=== PATIENT | male | born 1995 | race Caucasian/White ===

== ENCOUNTER 2016-12-14 10:05 | Emergency (ER) | payer OTHER ==
--- NOTE | ~2016-12-14 | ER ---
PATIENT'S NAME: TEJAS [facility] AGE: 21 Y [address] ROOM: [place] [id number] LOCATION: [facility] ADMIT DATE: 12/14/2016 ER/Outpatient Report DISCHARGE DATE: 12/14/2016 FAMILY PHYSICIAN: PHYSICIAN, NO ATTENDING PHYSICIAN: Jacy Green Time of Arrival: 1005 hours. Time of Evaluation: 1011 hours. IDENTIFICATION: A 21-year-old male. CHIEF COMPLAINT: Left abdominal pain. HISTORY OF PRESENT ILLNESS: The complains of left-sided abdominal pain in the mid abdomen that radiates downward for the last 3-4 days. He describes it as a squeezing type sensation associated with nausea. Bowel movements have been normal. Last bowel movement was 30 minutes ago, they are not diarrhea, but maybe a little looser than normal. There is not how many per day. He states that is normal for him. No significant change. MEDICAL PROBLEMS: 1. 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 2. Pulmonary atresia. 3. He had a previous injury with a pelvic fracture. 4. Liver and spleen injury. ALLERGIES: NO KNOWN DRUG ALLERGIES. CURRENT MEDICATIONS: Effexor 150 mg q.a.m. which was just started in rehab. He was in a 30-day inpatient treatment program in [place] which he just got out of. REVIEW OF SYSTEMS: All systems reviewed negative other than what is noted in the HPI. SOCIAL HISTORY: The patient lives here in [place]. He has a significant other. Tobacco use, 8 to 10 cigarettes per day for 11 years. Alcohol and drug use with opiate. Alcohol and cocaine abuse, last use was 3 to 3-1/2 months ago. FAMILY HISTORY: PATIENT'S NAME: TEJAS [facility] AGE: 21 Y [address] ROOM: [place] [id number] LOCATION: [facility] ADMIT DATE: 12/14/2016 ER/Outpatient Report DISCHARGE DATE: 12/14/2016 FAMILY PHYSICIAN: PHYSICIAN, NO ATTENDING PHYSICIAN: Jacy Green No pertinent family history. No history of inflammatory bowel disease or colon problems. REVIEW OF SYSTEMS: No dysuria, no increased frequency of urination. PHYSICAL EXAMINATION: VITAL SIGNS: Height 6 feet 0 inches and weight 85 kg. Pulse 80, respiratory rate 16, temp 97.5, sats 95% on room air. GENERAL: Pleasant male in no acute distress. HEENT: Head: Normocephalic, atraumatic. Ears: TMs translucent in both ears. Nose: Mucosa pink, no lesions. Mouth: No lesions. Pharynx benign. NECK: Supple. No lymphadenopathy. LUNGS: Clear to auscultation. HEART: Regular rate and rhythm. ABDOMEN: Soft, nondistended. Tender to palpation in the left lower abdomen. No rebound or guarding. SKIN: [place], warm, and dry. No lesions or rashes noted. NEURO: No focal deficit. LABORATORY DATA: Hemoglobin 16.6, hematocrit 48.2, platelets 154, white count 6.2. INR 1.1. Sodium 142, potassium 3.8, chloride 104, CO2 of 30, BUN 18, creatinine 0.9, blood sugar 89. Liver enzymes normal. Amylase 70. Lipase 138. UA negative. CT scan of the abdomen and pelvis with IV, no oral contrast, negative for acute findings per Radiology. No acute findings noted on this CT scan. IMPRESSION AND PLAN: Abdominal pain. The patient is feeling a little bit improved. He was given Zofran 4 mg for nausea. His pain improved from a 4 to a 2. Vital signs remained stable, and he will be discharged home. Clear liquids as tolerated. Advance diet as tolerated. Tylenol or ibuprofen for pain. Follow up in 1-[address] Meredith. Follow up sooner if any problems or concerns. The patient and his significant other understand and agree, and all questions have been answered. JACY GREEN MD CAR/modl /[id number] d: 12/14/162007 t: 12/28/16700, OUTPATIENT REPORT
[2016-12-14 10:40] LABS: BILIRUBIN URINE NEGATIVE (NEGATIVE); BLOOD URINE NEGATIVE /UL (NEGATIVE); COLOR URINE YELLOW (YELLOW); GLUCOSE URINE NEGATIVE (NEGATIVE); KETONE URINE NEGATIVE (NEGATIVE); LEUKOCYTES URINE NEGATIVE /UL (NEGATIVE); NITRITE URINE NEGATIVE (NEGATIVE); PROTEIN URINE NEGATIVE (NEGATIVE); TURBIDITY URINE CLEAR (CLEAR); UROBILINOGEN URINE NORMAL (NORMAL)
[2016-12-14 10:45] LABS: BASOPHIL % 0.6 %; EOSINOPHIL # 0.1 K/uL (0.0-0.5); EOSINOPHIL % 2.2 %; HEMATOCRIT 48.2 % (37.0-53.0); HEMOGLOBIN 16.6 g/dL (12.0-17.0); IMMATURE GRANULOCYTE % 0.3 %; LYMPHOCYTE # 1.2 K/uL (0.8-4.0); LYMPHOCYTE % 19.3 %; MCH 32.1 pg (27.0-34.0); MCHC 34.4 gm/dL (32.0-36.5); MCV 93.2 fl (83.0-98.0); MONOCYTE # 0.5 K/uL (0.0-1.0); MONOCYTE % 8.7 %; MPV 10.5 fl (9.4-12.4); NEUTROPHIL # (ANC) 4.3 K/uL (1.4-9.0); NEUTROPHIL % 68.9 %; NRBC % 0 /100WBC (0-0.00); PLATELET COUNT 154 K/uL (150-450); RBC 5.17 M/uL (4.00-6.00); WBC 6.2 K/uL (4.0-11.0)
[2016-12-14 10:56] LABS: INR - (THERAPEUTIC) 1.1 (0.9-1.1); PROTIME 11.4 SECONDS (9.6-11.1); PTT 27 SECONDS (25-32)
[2016-12-14 11:03] LABS: ALBUMIN 4.2 gm/dL (3.5-5.0); ALK PHOS 66 IU/L (33-138); ALT 36 IU/L (12-78); ANION GAP 11.8 (10.0-19.0); AST 18 IU/L (10-40); BLOOD UREA NITROGEN 18 mg/dL (6-24); CALCIUM 8.7 mg/dL (8.5-10.5); CHLORIDE 104 mMol/L (96-110); CO2 30 mMol/L (22-32); CREATININE 0.9 mg/dL (0.6-1.3); ESTIMATED GFR (MDRD EQUATION) > 60; POTASSIUM 3.8 mMol/L (3.7-5.1); SODIUM 142 mMol/L (135-145); TOTAL BILIRUBIN 0.6 mg/dL (0.0-1.5); TOTAL PROTEIN 7.6 g/dL (6.0-8.4)
== END 2016-12-14 12:27 | disposition disaster alternative care site (69) ==
LOC: GMED 10:05
PROVIDERS: Family Medicine
DX: R10.32 Left lower quadrant pain (principal); R11.0 Nausea; F17.210 Nicotine dependence, cigarettes, uncomplicated; Z79.899 Other long term (current) drug therapy
CPT/HCPCS: J2405; Q9967